=== PATIENT | male | born 1945 | race Two or more races ===

== ENCOUNTER 2016-08-13 08:55 | Day surgery (SDC) | payer MEDICARE, MEDICAID ==
[~2016-08-13] VITALS: Ht 170.2 cm; Wt 74.8 kg
[2016-08-13] VITALS (9 sets, daily range): BP systolic 59–144; BP diastolic 49–100; PULSE 71–97; RESP 12–14; O2SAT 92–99
[~2016-08-13 08:55] MED LIST: 0.9% Sodium Chloride 1,000 ML IV PRN; AMLO10TA5 PO; ASPI81TA35 PO; CITA20TA PO; CLONAZEPAM0.5 M1 PO; HYDR25TA4 PO; METF850T2 PO; MULT-1018 PO; OMEG300C3 PO; OMEP-113 PO; PRV40T PO; Sodium Chloride LOK Flush 10 mL Syringe IV PRN; fentaNYL-PF 50 mCg/mL 2 mL Inj IVPUSH PRN
[2016-08-13] MEDS ORDERED: Ondansetron 2 mg/mL 2 mL Inj ONE (08:56)
[2016-08-13] MEDS ORDERED: Ketamine 10 mg/mL 20 mL Inj ONE (08:56)
[2016-08-13] MEDS ORDERED: Atropine 0.4 mg/mL 5 mL Inj ONE (08:56)
[2016-08-13] MEDS ORDERED: Propofol 10,000 mCg/mL 20 mL Inj ONE (08:56)
[2016-08-13] MEDS ORDERED: Lactated Ringer's 1,000 ML IV SCH (10:05)
[2016-08-13] MEDS ORDERED: Ondansetron 2 mg/mL 2 mL Inj IVPUSH PRN (10:05)
[2016-08-13] MEDS ORDERED: MetoCLOpramide 5 mg/mL 2 mL Inj IVPUSH PRN (10:05)
--- NOTE | 2016-08-13 10:05 | PCM.HPANE ---
Patient Data Surgeon Admitting Provider: Attending Provider:Kamran Walton MD Primary Care Physician:Nicolette Brown MD Other Provider: Reason for Visit Adenomatous Polyp Of Descending Colon Ht/WT & BMI Height (Feet): 5 Height (Inches): 7.00 Weight (Kilograms): 74.840 Body Mass Index 25.00 Allergies Coded Allergies: No Known Allergies (Verified Allergy, Unknown, 03/24/14) Past Anesthesia History Anesthesia History: Denies:: Abnormal Airway, Anesthesia Reactions, Difficult Intubation, Fam Anesthesia Reaction, Fam Malignant Hypertherm, Malignant Hyperthermia Diabetes History Hx Diabetes?: Yes Current Bedside Blood Glucose: 109 MRSA MRSA: No Medications Blood Thinner: Aspirin Last Dose Blood Thinner: Aug 11, 2016 Hypertension Medication: Yes Home Meds Incl Beta Kary: No Reported Medications Multivitamin (Multi Vitamin Daily)1 Each Tablet1 Each PO DAILY 30 Days Ref 0 08/10/16 Metformin 850 Mg [id number] Mg PO BID Ref 0 08/10/16 Hydrochlorothiazide 25 Mg Eiyumg41 Mg PO DAILY 30 Days Ref 0 03/25/14 Louisa-3 Fatty Acids (Fish Oil)300 Mg Wpcklsj760 Mg PO 03/25/14 Pravastatin (Pravachol)40 Mg Tab80 Mg PO HS 30 Days Ref 0 03/25/14 Omeprazole Magnesium (Omeprazole)20 Mg Capsule.dr20 Mg PO DAILY 30 Days Ref 0 03/25/14 Citalopram-Expunged Drug, Do Not Renew! 20 Mg Pgqmff26 Mg PO DAILY 05/23/11 clonazePAM-Expunged Drug, Do Not Renew! 0.5 Mg Tablet0.5 Mg PO HS 05/23/11 AmLODIPine-Expunged Drug, Do Not Renew! 10 Mg Nbidcs00 Mg PO D 05/23/11 Aspirin-Expunged Drug, Do Not Renew! ([facility] [employer] Aspirin-Expunged Drug, Do Not Renew)81 Mg Tab.chew81 Mg PO D 05/23/11 Discontinued Reported Medications Fenofibrate,Micronized (Fenofibrate)200 Mg Vjusbbt439 Mg PO DAILY 30 Days Ref 0 03/25/14 History HEENT History: Denies:: Abnormal Airway Difficult Intubation Dysphagia Hearing Problem Hx of Heart Problems?: Yes Cardiovascular History: Positive for:: Cardiac Surgery (STENT PLACEMENT) Chest Pain (denies any chest pain or cardiac symptoms at present) Hypertension (well controlled) Denies:: AICD Atrial Fibrillation Pacemaker Valvular Heart Disease Hx of Respiratory Problem?: No Respiratory History: Denies:: Asthma COPD Cough Hemoptysis Pneumonia Tuberculosis (unknown (maybe in [place])) Hx Neurologic Problems?: No Neurological History: Denies:: CVA Hx of GI Problems?: Yes Gastrointestinal History: Positive for:: Gastroesphageal Reflux (omeprazole helps decrease the pain.) Rectal Bleeding (DARK) Denies:: Cirrhosis Diverticulitis Hiatal Hernia Liver Disease Hx of Problems?: No Male Hx: Denies:: Prostate Problems Scrotal Mass Testicular Surgery Skin History: Denies:: History Skin Disorders? Hx Musculoskeletal Problems?: No Musculoskeletal History: Denies:: Joint Replacement Psycho Social History: Positive for:: Anxiety Hx Depression Hx Surgeries?: Yes (hernia on left , RIGHT EYE) Hx Any Other Health Problems?: No Other History: Denies:: Cancer Endocrine Disease Hospitalization Thyroid Disease History Blood Transfusions: Denies:: Blood Transfusions Hx Diabetes: YesBedside Blood Glucose: 109 Hx Alcohol Use: NoHx Substance Use: No Smoking Status: Never Smoker Stop/Bang Treated for Sleep Apnea?: No Do You Have a CPAP Machine?: No S-Snoring: Do You Snore Loudly: Yes T-Tired: feel tired, fatigued: No O-Obsered: Observed not breath: No P-Blood Pressure: treated: Yes B- Body Mass Index > 35 kg/m2: Yes A- Age over 50: Yes N- Neck Large Circumference: No G- Gender Male: Yes MARIBEL Total Score: 5 MARIBEL Category 2: Yes MARIBEL Category 4 OutPt Procedure: Yes Risk Assessment Category Category 1A: Patient has history of documented sleep apnea, and HAS NOT received any narcotic, sedative or anesthesia administration during this stay. Category 1B: Patient has history of documented sleep apnea, and HAS received any narcotic , sedative or anesthesia administration during this stay Category 2: Patient has SUSPECTED Obstructive Sleep Apnea, and HAS received any narcotic , sedative or anesthesia administration during this stay. Category 3: Patient has SUSPECTED Obstructive Sleep Apnea and HAS NOT received narcotic, sedative or anesthesia administration during this stay. Category 4: Outpatient in Procedural Areas with known sleep apnea or who screen positive for High Risk via the STOP/BANG questionnaire. Exam Exam Vital Signs Vital Signs Date Time Temp Pulse Resp B/P Pulse Ox O2 Delivery O2 Flow Rate FiO2 08/13/16 09:24 82 144/100 99 Room Air General Appearance: Alert, Oriented X3, Cooperative, No Acute Distress HEENT/AIRWAY: MP 2 Lungs: Clear to Auscultation, Normal Air Movement Heart: Exam Unremarkable, Regular Rate/Rhythm, No Murmurs/Rubs/Gallops Meds/Labs/Diagnostics Bedside Blood Glucose: 109 Plan Impression Patient chart reviewed, patient interviewed and anesthestic plan with risks, benefits, and alternatives discussed, and informed consent obtained. ASA Physical Status: ASA2 Mod Systemic Disease Anesthetic Plan: MAC Bene/Risks/Altern/Consents: Yes HP Complete Prior to Induction: Yes Nacho Angelo MD Aug 13, 2016 10:04
--- NOTE | 2016-08-13 10:41 | PCM.ENDCOL ---
Colonoscopy Date of Service: Aug 13, 2016 Physician Kamran Walton MD Indication for Procedure Screening and history of polyps Post Procedure Dx & Findings: Polyp hemorrhoids diverticuli Procedure Colonoscopy Prep adequate Cecum 6 minutes Withdrawal 24 minutes PROCEDURE IN DETAIL: After unremarkable rectal examination Olympus video colonoscope was inserted patient's anal canal is advanced to cecum. Landmarks were identified including the ileocecal valve and appendiceal orifice. Scope was withdrawn systematically. The mucosa of the cecum, ascending, transverse, descending, sigmoid, rectal mucosa lined with whitish, pink, smooth, glistening, normal-appearing mucosa, normal fine branching, underlying vascularity, normal haustra. The patient tolerated procedure and was transported to observation area. In the transverse colon, there were 3 polyps 2-3 mm in size. These were resected completely using cold snare. There was also a 1 mm polyp which was resected completely using cold forcep. In the descending colon there were two 3 mm polyps which were resected completely using cold snare. In the sigmoid colon there was a 1 cm polyp which was resected completely using hot snare. In the sigmoid colon and also in the ascending colon, there were few small diverticuli. In the rectum retroflexion was done which showed hemorrhoids anal canal was inspected carefully on the way out and mild hemorrhoids noted. Impression Polyps 7 was complete removed Hemorrhoids Diverticuli History of polyps Recommendation Repeat colonoscopy in 3 years Diverticular diet We will consider doing conscious sedation colonoscopy next time. Presedation Assessment Risks and Benefits Informed consent was obtained from the patient after all risks and benefits including but not limited to drug reaction, infection, pain, bleeding, perforation, as well as alternatives were discussed. Patient monitoring Continuous pulse oximetry, cardiac monitoring, blood pressure monitoring, IV access, and oxygen at 2L per nasal cannula. Complications There were no periprocedural complications identified. Post Procedure Plan Post Procedure Recommendations 1. Restrict activities today. 2. Resume normal activities in the morning. 3. Resume medications. 4. Patient informed of normal post procedure side effects as bloating, drowsiness, blood streaking in the stool. 5. average risk CRCS. If colon polyps come back as: -Hyperplastic- can repeat colonoscopy in 10 years -Tubular adenoma- repeat colonoscopy in 5 years -Tubulovillous/villous adenoma- repeat colonoscopy in 3 years -If any dysplasia- return to clinic as soon as possible 6. Please don't hesitate to call me with any questions. Kamran Walton MD Aug 13, 2016 10:41
--- NOTE | 2016-08-14 13:57 | PATH ---
SURGICAL PATHOLOGY Attending Physician:Kamran Walton M.D. CASE STATUS: Signed Out PATIENT NAME: LINDA CARLSON PID: [id number] : 1945 DATE COLLECTED:08/13/2016 16:22 SPECIMEN: 1: Colon, Biopsy 2: Colon, Biopsy 3: Colon, Biopsy CLINICAL HISTORY: A: TRANSVERSE COLON POLYPS X4 B: DESCENDING COLON POLYP X2 C: SIGMOID COLON POLYP FINAL DIAGNOSIS: A. Transverse Colon Polyps: Tubular adenoma involving multiple biopsy fragments. B. Descending Colon Polyp: Tubular adenoma involving two biopsy fragments. C. Sigmoid Colon Polyp: Tubular adenoma. ICD10: D12.3 GROSS DESCRIPTION: The specimen is received in three formalin filled containers labeled with the patient's name. 1). The specimen is sublabeled "transverse colon polyps" and consists of 4 portions of tissue which aggregate to 0.6-0.5 x 0.4 CM. The specimen is entirely submitted in cassette 1A. 2). The specimen is sublabeled "descending colon polyps" and consists of 3 portions of tissue which aggregate to 0.5 x 0.5 x 0.5 CM. The specimen is entirely submitted in cassette 2A. 3). The specimen is sublabeled "sigmoid colon polyp" and consists of a 0.6 0.5 x 0.4 CM portion of tissue which is entirely submitted in cassette 3A. 08/13/2016 [facility] ICD-9 CODES: CPT CODES: 1: 92219 2: 95671 3: 77080 Electronically Signed Out Marty Schulte MD [facility] [place] [address] Technical component performed at [facility], [facility] [address], [address]
== END 2016-08-13 23:59 | disposition home or self-care (01) ==
LOC: END 08:55
PROVIDERS: ATTEND Internal Medicine
DX: Z12.11 Encounter for screening for malignant neoplasm of colon (principal); D12.3 Benign neoplasm of transverse colon; D12.4 Benign neoplasm of descending colon; D12.5 Benign neoplasm of sigmoid colon; K57.30 Diverticulosis of large intestine without perforation or abscess without bleeding; K64.8 Other hemorrhoids; Z86.010 Personal history of colon polyps; I10 Essential (primary) hypertension; E78.5 Hyperlipidemia, unspecified; I25.10 Atherosclerotic heart disease of native coronary artery without angina pectoris; I25.2 Old myocardial infarction; R00.2 Palpitations; Z79.82 Long term (current) use of aspirin; Z79.84 Long term (current) use of oral hypoglycemic drugs